=== PATIENT | female | born 1965 | race Caucasian/White ===

== ENCOUNTER 2018-11-26 06:48 | Day surgery (SDC) | payer OTHER ==
[2018-11-26] MEDS ORDERED: PROPOFOL 60 ML (11:18)
[2018-11-26] MEDS ORDERED: LIDOCAINE 2% (SDV) 5 ML INJ (11:18)
== END 2018-11-26 15:59 | disposition home or self-care (01) ==
LOC: GIL 06:48
DX: K52.9 Noninfective gastroenteritis and colitis, unspecified (principal); I10 Essential (primary) hypertension; J45.909 Unspecified asthma, uncomplicated; K21.9 Gastro-esophageal reflux disease without esophagitis
CPT/HCPCS: 43239; 88305